=== PATIENT | male | born 1980 | race Two or more races ===

== ENCOUNTER 2025-03-28 00:03 | Emergency (ER) | payer MEDICAID ==
[~2025-03-28] VITALS: Ht 162.6 cm; Wt 55.3 kg
[2025-03-28 02:07] VITALS: BP 108/79; TEMP 98; O2SAT 96
[2025-03-28] MEDS ORDERED: VALA10002 PO (02:35)
[2025-03-28] MEDS ORDERED: IBUP-1490 PO (02:35)
[2025-03-28] MEDS ORDERED: PRED50TA PO (02:35)
[2025-03-29] MEDS ORDERED: NITROFURANTOIN/MONOHYDRATE MACROCRYSTALS 100 MG CAPSULE ONE (21:28)
== END 2025-03-28 02:45 | disposition home or self-care (01) ==
LOC: ER 00:05
DX: B02.9 Zoster without complications (principal); M79.652 Pain in left thigh; Z79.52 Long term (current) use of systemic steroids; Z79.624 Long term (current) use of inhibitors of nucleotide synthesis; Z60.2 Problems related to living alone